=== PATIENT | female | born 1955 | race Caucasian/White ===

== ENCOUNTER → 2023-04-18 14:18 | Outpatient (REF) | payer MEDICARE, OTHER, SELFPAY | LOC: HWRAD 14:18 | PROVIDERS: ATTENDING PHYSICIAN Internal Medicine | DX: Z78.0 Asymptomatic menopausal state (principal); Z12.31 Encounter for screening mammogram for malignant neoplasm of breast | CPT/HCPCS: 77063; 77067; 77080 ==

== ENCOUNTER → 2023-12-08 06:18 | Day surgery (SDC) | payer MEDICARE, OTHER, SELFPAY | LOC: GI 06:18 | PROVIDERS: ATTENDING PHYSICIAN Internal Medicine Gastroenterology; FAMILY PHYSICIAN Internal Medicine | DX: Z12.11 Encounter for screening for malignant neoplasm of colon (principal); Z86.0109 Personal history of other colon polyps; K64.8 Other hemorrhoids; K57.30 Diverticulosis of large intestine without perforation or abscess without bleeding | CPT/HCPCS: G0105 ==

== ENCOUNTER → 2024-04-19 09:36 | Outpatient (REF) | payer MEDICARE, OTHER, SELFPAY | LOC: HWWDC 09:36 | PROVIDERS: ATTENDING PHYSICIAN Internal Medicine; REFERRING PHYSICIAN Obstetrics & Gynecology | DX: Z12.31 Encounter for screening mammogram for malignant neoplasm of breast (principal) | CPT/HCPCS: 77063; 77067 ==